=== PATIENT | male | born 1985 | race Caucasian/White ===

== ENCOUNTER 2018-12-09 15:24 | Emergency (ER) | payer MEDICAID, OTHER ==
[2018-12-09] MEDS ORDERED: Sodium Chloride 0.9% 10 ML Syringe FLUSH PRN (15:29)
[2018-12-09 16:00] LABS: CHLORIDE,CL 104 mmol/L (98-107); SODIUM,NA 140 mmol/L (136-145)
[2018-12-09] MEDS ORDERED: Acetaminophen 500 MG Tab PO ONE (16:24)
[2018-12-09] MEDS ORDERED: Sodium Chloride 0.9% 1,000 ML IV ONE (17:07)
[2018-12-09] MEDS ORDERED: Ondansetron 4 MG/2 ML SDV IVPUSH ONE (17:35)
[2018-12-09] MEDS ORDERED: Morphine 4 MG/ML Syringe IVPUSH ONE (17:35)
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
[2018-12-09 18:14] VITALS: BP 131/62
== END 2018-12-09 18:40 | disposition home or self-care (01) ==
LOC: LL.ED 15:24
DX: S05.12XA Contusion of eyeball and orbital tissues, left eye, initial encounter (principal); S00.83XA Contusion of other part of head, initial encounter; S20.20XA Contusion of thorax, unspecified, initial encounter; Y04.8XXA Assault by other bodily force, initial encounter; F41.9 Anxiety disorder, unspecified; F32.9 Major depressive disorder, single episode, unspecified; F17.290 Nicotine dependence, other tobacco product, uncomplicated; R07.81 Pleurodynia; Y07.410 Brother, perpetrator of maltreatment and neglect; Z88.6 Allergy status to analgesic agent; Z79.899 Other long term (current) drug therapy
CPT/HCPCS: 36415; 70450; 71046; 72125; 73010-RT; 80053; 80305-QW; 81001; 85025; 96374; 96375; 99284-25; A9270-GY; G0480; J2270; J2405

== ENCOUNTER 2019-01-27 17:08 | Emergency (ER) | payer MEDICAID, OTHER ==
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
[2019-01-27 17:52] VITALS: BP 141/78
[2019-01-27] MEDS ORDERED: LORazepam 1 MG Tab PO ONE (17:57)
== END 2019-01-27 18:11 | disposition home or self-care (01) ==
LOC: LL.ED 17:08
DX: S60.221A Contusion of right hand, initial encounter (principal); F41.9 Anxiety disorder, unspecified; F32.9 Major depressive disorder, single episode, unspecified; F17.210 Nicotine dependence, cigarettes, uncomplicated; W22.01XA Walked into wall, initial encounter; Z88.6 Allergy status to analgesic agent; Z79.899 Other long term (current) drug therapy
CPT/HCPCS: 73130; 99283; A9270

== ENCOUNTER 2019-02-01 18:32 | Emergency (ER) | payer OTHER ==
[2019-02-01 18:38] VITALS: BP 133/82
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
== END 2019-02-01 20:03 | disposition left against medical advice (07) ==
LOC: LL.ED 18:32
DX: M54.2 Cervicalgia (principal); F17.210 Nicotine dependence, cigarettes, uncomplicated; Z88.6 Allergy status to analgesic agent; Z79.899 Other long term (current) drug therapy
CPT/HCPCS: 72125; 99284-25